=== PATIENT | male | born 1990 | race Caucasian/White ===

== ENCOUNTER 2021-06-21 11:47 | Emergency (ER) | payer OTHER ==
[2021-06-21 11:56] VITALS: RESP 16
[2021-06-21] MEDS ORDERED: LIDOCAINE 1% INJ 10MG/ML (20 ML MDV) SQ ONE (12:39)
--- NOTE | 2021-06-21 12:55 | ED ---
General Adult HPI - General Chief complaint: Wound/Laceration Stated complaint: Left hand injury Time Seen by Provider: 06/21/21 11:58 Source: patient, EMS Mode of arrival: EMS Limitations: no limitations - History of Present Illness Initial comments: Patient is a 31-year-old male who was transferred here from [facility] due to arterial laceration to left hand. Patient states that he was using a box gluer at home when it slipped and cut his left hand on the palm. Patient initially presented to local hospital where a pressure dressing was applied, he was given a tetanus shot and a dose of Ancef. Patient was sent here for hand consultation. Patient denies numbness, tingling, weakness, loss of range of motion, arm or wrist pain. - Related Data Previous Rx's Medication Instructions Recorded Cephalexin [Keflex] 500 mg PO Q6HR 7 Days #28 cap 06/21/21 Allergies Allergy/AdvReac Type Severity Reaction Status Date / Time No Known Allergies Allergy Verified 06/21/21 13:03 Review of Systems ROS Statement: Those systems with pertinent positive or pertinent negative responses have been documented in the HPI. ROS Other: All systems not noted in ROS Statement are negative. Past Medical History Past Medical History: No Reported History History of Any Multi-Drug Resistant Organisms: None Reported Past Surgical History: No Surgical Hx Reported Past Psychological History: No Psychological Hx Reported Smoking Status: Current every day smoker Past Alcohol Use History: None Reported Past Drug Use History: Marijuana General Exam Limitations: no limitations General appearance: alert, in no apparent distress Head exam: Present: atraumatic, normocephalic, normal inspection Eye exam: Present: normal appearance, PERRL, EOMI. Absent: scleral icterus, conjunctival injection, periorbital swelling Neck exam: Present: normal inspection Left Hand Wrist exam: Present: full ROM, tenderness, laceration (Laceration measuring approximately 4-1/2 cm across the left palmar crease) Neuro motor exam: Present: wrist extension intact, thumb opposition intact, thumb IP flexion intact, thumb adduction intact, fingers 2-5 abduction intact Neurosensory exam: Present: radial nerve intact, ulnar nerve intact, median nerve intact Neurological exam: Present: alert, oriented X3, CN II-XII intact Psychiatric exam: Present: normal affect, normal mood Skin exam: Present: warm, dry, intact, normal color. Absent: rash Course Vital Signs 06/21/21 06/21/21 11:49 13:52 Temperature 98.1 F 98.0 F Pulse Rate 82 92 Respiratory 16 16 Rate Blood Pressure 136/84 129/97 O2 Sat by Pulse 97 97 Oximetry Procedures - Laceration Laceration #1 Consent Obtained: verbal consent Site: hand Size (cm): 4 Description: linear Depth: simple, single layer, arterial injury (According to site from which he was transferred) Anesthetic Used: lidocaine 1% Anesthesia Technique: local infiltration Amount (mls): 5 Pre-repair: wound explored, irrigated extensively Type of Sutures: nylon Size of Sutures: 4-0 Number of Sutures: 6 Technique: simple, interrupted Patient Tolerated Procedure: well Medical Decision Making - Medical Decision Making Patient is a 31-year-old male presenting from transfer from [facility] due to laceration with arterial injury to the left hand. Patient states it was from using a box gluer. At initial hospital patient was given one dose of Ancef and tetanus shot. Pressure dressing was applied and he was transferred by EMS to our facility. On inspection there is some bleeding from the site, no pulsatile blood. Patient has full range of motion of the hand and fingers and full sensation. Hand was cleaned and prepped with iodine, laceration was infiltrated with 1% lidocaine. Wound was extensively irrigated with 500 mL of saline. 6 simple interrupted stitches were applied to the laceration measuring approximately 4.5 cm. Nonadherent dressing was applied and patient was prescribed Keflex 500 mg 4 times a day for 7 days. Patient was instructed to follow-up with Dr. Thomason on Thursday. My attending Dr. Napoles consulted with orthopedics for this case. I answered all questions and educated the patient on return parameters. Patient conveyed verbal understanding and agreed to the plan. I discussed this case with my attending Dr. Napoles. Disposition Clinical Impression: Laceration Disposition: HOME SELF-CARE Condition: Good Instructions (If sedation given, give patient instructions): Care For Your Stitches (DC), Laceration (DC), Acute Wounds (ED) Additional Instructions: Follow-up with Dr. Thomason in one to 2 days. Follow-up with PCP in one to 2 days. Take medication as prescribed. May take Motrin and Tylenol for pain control as needed. Report back to ER with worsening symptoms or new onset alarm symptoms, including but not limited to increased pain, bleeding, swelling, discharge, loss of hand function, numbness or tingling Prescriptions: Cephalexin [Keflex] 500 mg PO Q6HR 7 Days #28 cap Is patient prescribed a controlled substance at d/c from ED?: No Referrals: None,Stated [Primary Care Provider] - 1-2 days Milana Thomason DO [Doctor of Osteopathic Medicine] - 1-2 days Time of Disposition: 13:49
[2021-06-21 13:56] VITALS: BP 129/97; PULSE 92; TEMP 98
== END 2021-06-21 13:56 | disposition home or self-care (01) ==
LOC: EC 11:47
DX: S61.412A Laceration without foreign body of left hand, initial encounter (principal); F17.210 Nicotine dependence, cigarettes, uncomplicated; W27.8XXA Contact with other nonpowered hand tool, initial encounter; Y93.89 Activity, other specified; Y92.009 Unspecified place in unspecified non-institutional (private) residence as the place of occurrence of the external cause
CPT/HCPCS: 99283; 12002; J2001